=== PATIENT | female | born 1955 | race Caucasian/White ===

== ENCOUNTER 2016-06-14 13:12 | Inpatient (IN) | payer OTHER ==
[~2016-06-14] VITALS: Ht 149.9 cm; Wt 79.7 kg
[2016-06-14 14:42] LABS: HEMATOCRIT 34.3 % (36.0-46.0); MCH 33.5 PG (29.0-34.0); MCHC 33.2 G/DL (30.0-36.0); MCV 100.9 FL (83-99); MEAN PLAT.VOLUME 10.4 uM^3 (9.5-12.4); PLATELET COUNT 131 K/uL (156-360); RBC DIS.WIDTH-CV 15.8 % (11.8-14.6); RBC DIS.WIDTH-SD 56.3 % (39-53); WHITE BLOOD COUNT 6.3 K/uL (4.1-10.2)
[2016-06-14 14:52] LABS: INTER. NORMALIZED RATIO 1.7; PROTHROMBIN TIME 17.1 (9.2-11.2); PTT 29.9 (25-32)
[2016-06-14 14:56] LABS: CHLORIDE 105 mEq/L (99-109); POTASSIUM 4.4 mEq/L (3.7-5.4); SODIUM 136 mEq/L (136-147)
[2016-06-14 14:58] LABS: GLUCOSE 170 mg/dL (70-99)
[2016-06-14 15:00] LABS: ANION GAP 9 MEQ/L (2-14); TOTAL BILIRUBIN 10.7 mg/dL (0.0-1.0)
[2016-06-14 15:02] LABS: ALKALINE PHOSPHATASE 447 IU/L (3-129); GFR ESTIMATE (CALCULATED) > 59 mL/min/
[2016-06-14 15:03] LABS: UREA NITROGEN (BUN) 10 mg/dL (9-23)
[2016-06-14 15:04] LABS: DIRECT BILIRUBIN 8.1 mg/dL (0.0-0.3)
[2016-06-14 15:06] LABS: LIPASE 47 U/L (1.0-51.0)
[2016-06-14 17:31] LABS: ADD MIUA? YES; BILIRUBIN SMALL; BLOOD SMALL; COLOR AMBER ((YELLOW)); GLUCOSE (STRIP) NEGATIVE; KETONES NEGATIVE; LEUKOCYTES LARGE; NITRITE NEGATIVE; PROTEIN (STRIP) NEGATIVE; SPECIFIC GRAVITY 1.033 (1.000-1.030); UROBILINOGEN 0.2 MG/DL (0.2-1.0)
[2016-06-14 17:38] LABS: BACTERIA RARE /HPF; EPITHELIAL CELLS 3+ /HPF; MUCUS TRACE /LPF; RED BLOOD CELLS 30-40 /HPF (0-5); UCUL ADDED? YES; WHITE BLOOD CELLS TNTC /HPF (0-5); WHITE BLOOD CELLS CLUMP FEW /HPF (0-5)
[2016-06-14] MEDS ORDERED: PRINIVIL10 MG PO (17:49)
[2016-06-14] MEDS ORDERED: DAILY VITE1 EAC1 PO (17:49)
[2016-06-14] MEDS ORDERED: TEGRETOL200 MG PO ×2 (17:49→17:51)
[2016-06-14] MEDS ORDERED: LO-DOSE ASPIRIN81 M1 PO (17:50)
[2016-06-14] MEDS ORDERED: KEPPRA XR500 MG PO (17:50)
[2016-06-14] MEDS ORDERED: CELEXA10 MG PO (17:51)
[2016-06-14] MEDS ORDERED: TYLENOL REGULA325 MG PO (17:51)
[2016-06-14] MEDS ORDERED: PEPCID20 MG PO (17:51)
[2016-06-14 20:22] VITALS: BP 180/78
[2016-06-14 22:31] VITALS: BP 126/68
[2016-06-14 22:45] VITALS: BP 138/62
[2016-06-14 23:00] VITALS: BP 124/61
[2016-06-14 23:18] VITALS: BP 134/62
[2016-06-15] VITALS (9 sets, daily range): BP systolic 105–134; BP diastolic 56–85
[2016-06-15 08:20] LABS: HEMATOCRIT 29.5 % (36.0-46.0); MCH 32.7 PG (29.0-34.0); MCHC 32.5 G/DL (30.0-36.0); MCV 100.3 FL (83-99); PLATELET COUNT 130 K/uL (156-360); RBC DIS.WIDTH-CV 15.6 % (11.8-14.6); RBC DIS.WIDTH-SD 55.4 % (39-53); RED BLOOD COUNT 2.94 M/uL (3.80-5.20)
[2016-06-15 09:04] LABS: ANION GAP 11 MEQ/L (2-14); CHLORIDE 105 MEQ/L (99-109); POTASSIUM 3.9 MEQ/L (3.7-5.4); SAMPLE HEMOLYSIS CHECK 0; SAMPLE ICTERIC CHECK 2; SAMPLE LIPEMIA CHECK 0; SODIUM 140 MEQ/L (136-147); TOTAL BILIRUBIN 10.3 MG/DL (0.0-1.0)
[2016-06-15 09:10] LABS: ALKALINE PHOSPHATASE 345 IU/L (3-129); GFR ESTIMATE (CALCULATED) > 59 mL/min/; UREA NITROGEN (BUN) 8 mg/dL (9-23)
[2016-06-15 09:11] LABS: GLUCOSE 58 mg/dL (70-99)
[2016-06-15 13:03] LABS: INTER. NORMALIZED RATIO 1.4; PROTHROMBIN TIME 14.7 (9.2-11.2)
[2016-06-16 03:30] VITALS: BP 119/58
[2016-06-16 06:50] LABS: ANION GAP 8 MEQ/L (2-14); CHLORIDE 106 MEQ/L (99-109); POTASSIUM 3.9 MEQ/L (3.7-5.4); SAMPLE HEMOLYSIS CHECK 0; SAMPLE ICTERIC CHECK 2; SAMPLE LIPEMIA CHECK 0; SODIUM 138 MEQ/L (136-147); TOTAL BILIRUBIN 10.2 MG/DL (0.0-1.0)
[2016-06-16 06:56] LABS: ALKALINE PHOSPHATASE 334 IU/L (3-129); GFR ESTIMATE (CALCULATED) > 59 mL/min/; GLUCOSE 75 mg/dL (70-99); UREA NITROGEN (BUN) 10 mg/dL (9-23); UREA NITROGEN (BUN) 11 mg/dL (9-23)
[2016-06-16 07:16] VITALS: BP 123/62
[2016-06-16 17:28] LABS: POINT-OF-CARE METER ID UU13113675; POINT-OF-CARE USER ID 515036437
[2016-06-16 18:24] VITALS: BP 136/61
[2016-06-17] VITALS: BP 132/67
[2016-06-17 07:38] VITALS: BP 115/56
[2016-06-17 14:47] LABS: ANION GAP 9 MEQ/L (2-14); CHLORIDE 101 MEQ/L (99-109); POTASSIUM 3.7 MEQ/L (3.7-5.4); SAMPLE HEMOLYSIS CHECK 0; SAMPLE ICTERIC CHECK 2; SAMPLE LIPEMIA CHECK 0; SODIUM 136 MEQ/L (136-147); TOTAL BILIRUBIN 11.4 MG/DL (0.0-1.0)
[2016-06-17 14:56] LABS: ALKALINE PHOSPHATASE 351 IU/L (3-129); GFR ESTIMATE (CALCULATED) > 59 mL/min/; UREA NITROGEN (BUN) 12 mg/dL (9-23)
[2016-06-17 15:00] VITALS: BP 119/63
[2016-06-17 15:07] LABS: GLUCOSE 181 mg/dL (70-99)
[2016-06-17 22:54] VITALS: BP 138/68
[2016-06-18 07:13] VITALS: BP 129/67
[2016-06-18 07:36] LABS: ALKALINE PHOSPHATASE 305 IU/L (3-129); ANION GAP 10 MEQ/L (2-14); CHLORIDE 104 MEQ/L (99-109); GFR ESTIMATE (CALCULATED) > 59 mL/min/; POTASSIUM 3.7 MEQ/L (3.7-5.4); SAMPLE HEMOLYSIS CHECK 0; SAMPLE ICTERIC CHECK 2; SAMPLE LIPEMIA CHECK 0; SODIUM 140 MEQ/L (136-147); TOTAL BILIRUBIN 11.9 MG/DL (0.0-1.0); UREA NITROGEN (BUN) 9 mg/dL (9-23)
[2016-06-18 07:37] LABS: GLUCOSE 80 mg/dL (70-99)
[2016-06-18 11:17] VITALS: BP 118/60
[2016-06-18 15:49] VITALS: BP 114/64
[2016-06-18 22:48] VITALS: BP 104/55
[2016-06-19 07:25] VITALS: BP 127/62
[2016-06-19 07:39] LABS: ALKALINE PHOSPHATASE 309 IU/L (3-129); DIRECT BILIRUBIN 7.1 mg/dL (0.0-0.3); TOTAL BILIRUBIN 10.9 MG/DL (0.0-1.0)
[2016-06-19 15:26] VITALS: BP 123/62
[2016-06-19 22:39] VITALS: BP 135/63
[2016-06-20 07:29] LABS: ALKALINE PHOSPHATASE 359 IU/L (3-129); DIRECT BILIRUBIN 7.4 mg/dL (0.0-0.3)
[2016-06-20 08:14] VITALS: BP 126/59
[2016-06-20 16:36] VITALS: BP 136/63
[2016-06-20 22:55] VITALS: BP 120/57
[2016-06-21 08:15] VITALS: BP 131/60
[2016-06-21 13:01] LABS: ALKALINE PHOSPHATASE 373 IU/L (3-129); DIRECT BILIRUBIN 4.9 mg/dL (0.0-0.3); TOTAL BILIRUBIN 11.5 MG/DL (0.0-1.0)
[2016-06-21 16:18] VITALS: BP 126/60
== END 2016-06-21 19:20 | disposition home or self-care (01) | DRG 445 ==
LOC: EME 13:12 → EDBD 13:12 → 5EAST 17:41 → EDOF 17:41 → 5EAST 20:03
PROVIDERS: Emergency Medicine; Internal Medicine; Internal Medicine Gastroenterology; Specialist
DX: K83.1 Obstruction of bile duct (principal); N39.0 Urinary tract infection, site not specified; R17 Unspecified jaundice; E78.5 Hyperlipidemia, unspecified; E11.9 Type 2 diabetes mellitus without complications; I10 Essential (primary) hypertension; I25.10 Atherosclerotic heart disease of native coronary artery without angina pectoris; G35 Multiple sclerosis; F32.9 Major depressive disorder, single episode, unspecified; G40.909 Epilepsy, unspecified, not intractable, without status epilepticus; K21.9 Gastro-esophageal reflux disease without esophagitis; D69.6 Thrombocytopenia, unspecified; D64.9 Anemia, unspecified; R22.2 Localized swelling, mass and lump, trunk
CPT/HCPCS: 74177; 74183; 74330; 80048; 80053; 80076; 81003; 82565; 82948; 83690; 84520; 85027; 85610; 85730; 86850; 86900; 86901; 87077; 87081; 87086; 87186; 88305; 88341 TC; 88342 TC; 93005; 94010; 99281; 99285; C1757; C1769; C2625; J0330; J0461; J0696; J2250; J2405; J3010; J7030; J7050; P9017